=== PATIENT | female | born 1945 | race Caucasian/White ===

== ENCOUNTER 2019-03-26 15:14 | Outpatient (REF) | payer MEDICARE, SELFPAY ==
[2019-03-28 16:52] LABS: Campylobacter PCR SEE COMMENTS; Salmonella PCR SEE COMMENTS; Shiga Toxin PCR SEE COMMENTS; Shigella/Enteroinvasive Ecoli SEE COMMENTS
== END 2019-03-26 15:34 ==
LOC: NCHCN 15:14
PROVIDERS: PCP Physician Assistant Medical; Visit Provider Nurse Practitioner Family
DX: R19.7 Diarrhea, unspecified (principal)
CPT/HCPCS: 87505; 87324

== ENCOUNTER 2019-07-10 10:03 | Outpatient (REF) | payer MEDICARE, SELFPAY ==
[2019-07-11 12:14] LABS: Anion Gap 8.7 mmol/L (3-11); BUN 15 mg/dL (7-18); CO2 29.3 mmol/L (21.0-32.0); CREATININE 0.79 mg/dL (0.55-1.02); Calculated LDL 101 mg/dL; Chloride 103 mmol/L (98-107); Cholesterol 169 mg/dL (<200); Glucose 103 mg/dL (74-106); HDL Cholesterol 54 mg/dL (40-60); Potassium 4.2 mmol/L (3.5-5.1); Sodium 141 mmol/L (136-145); Triglyceride 70 mg/dL (<150)
== END 2019-07-10 10:23 ==
LOC: NCHCN 10:03
PROVIDERS: PCP Physician Assistant Medical; Visit Provider Nurse Practitioner Family
DX: E78.2 Mixed hyperlipidemia (principal); I10 Essential (primary) hypertension
CPT/HCPCS: 80048; 80061

== ENCOUNTER 2020-07-22 22:51 | Outpatient (REF) | payer MEDICARE, SELFPAY ==
[2020-07-22 19:35] LABS: Anion Gap 5.6 mmol/L (3-11); BUN 16 mg/dL (7-18); CO2 30.4 mmol/L (21.0-32.0); CREATININE 0.89 mg/dL (0.55-1.02); Calcium 9.1 mg/dL (8.5-10.1); Calculated LDL 101 mg/dL (<100); Chloride 103 mmol/L (98-107); Cholesterol 198 mg/dL (<200); Glucose 114 mg/dL (74-106); HDL Cholesterol 77 mg/dL (40-60); Potassium 4.2 mmol/L (3.5-5.1); Sodium 139 mmol/L (136-145); Triglyceride 100 mg/dL (<150)
== END 2020-07-22 23:11 ==
LOC: NCHCN 22:51
PROVIDERS: PCP Physician Assistant Medical; Visit Provider Nurse Practitioner Family
DX: E78.2 Mixed hyperlipidemia (principal); I10 Essential (primary) hypertension
CPT/HCPCS: 80048; 80061

== ENCOUNTER 2021-08-12 14:56 | Outpatient (REF) | payer MEDICARE, SELFPAY ==
[2021-08-12 21:57] LABS: Hemoglobin A1C 5.6 % (<5.7)
[2021-08-12 22:08] LABS: Anion Gap 9.1 mmol/L (3-11); BUN 23 mg/dL (7-18); CO2 27.9 mmol/L (21.0-32.0); CREATININE 0.9 mg/dL (0.55-1.02); Calcium 9.2 mg/dL (8.5-10.1); Chloride 101 mmol/L (98-107); Glucose 114 mg/dL (74-106); Magnesium 2.2 mg/dL (1.8-2.4); Potassium 4.3 mmol/L (3.5-5.1); Sodium 138 mmol/L (136-145); TSH 2.12 uIU/mL (0.36-3.74)
== END 2021-08-12 14:57 | disposition home or self-care (01) ==
LOC: NCHCN 14:56
PROVIDERS: PCP Physician Assistant Medical; Visit Provider Internal Medicine
DX: R73.9 Hyperglycemia, unspecified (principal); I10 Essential (primary) hypertension
CPT/HCPCS: 80048; 83036; 83735; 84100; 84443

== ENCOUNTER 2022-01-19 19:33 | Outpatient (REF) | payer MEDICARE, SELFPAY | END 2022-01-19 19:34 | disposition home or self-care (01) | LOC: NCHCN 19:33 | PROVIDERS: PCP Physician Assistant Medical; Visit Provider Nurse Practitioner Family | DX: T14.8XXA Other injury of unspecified body region, initial encounter (principal); W57.XXXA Bitten or stung by nonvenomous insect and other nonvenomous arthropods, initial encounter | CPT/HCPCS: 87070; 87205 ==

== ENCOUNTER 2022-09-02 11:22 | Outpatient (REF) | payer MEDICARE, SELFPAY ==
[2022-09-02 18:52] LABS: Anion Gap 8.3 mmol/L (3-11); BUN 21 mg/dL (7-18); CO2 27.7 mmol/L (21.0-32.0); Calcium 9.7 mg/dL (8.5-10.1); Chloride 102 mmol/L (98-107); Estimated GFR 58.02 (mL/min/1.73m2); Glucose 115 mg/dL (74-106); Magnesium 2.1 mg/dL (1.8-2.4); Sodium 138 mmol/L (136-145)
[2022-09-02 18:55] LABS: Hemoglobin A1C 5.8 % (<5.7)
== END 2022-09-02 11:23 | disposition home or self-care (01) ==
LOC: NCHCN 11:22
PROVIDERS: PCP Physician Assistant Medical; Visit Provider Internal Medicine
DX: R73.9 Hyperglycemia, unspecified (principal); I10 Essential (primary) hypertension; M81.0 Age-related osteoporosis without current pathological fracture; Z00.00 Encounter for general adult medical examination without abnormal findings
CPT/HCPCS: 80048; 83036; 83735

== ENCOUNTER 2023-08-29 18:13 | Outpatient (REF) | payer MEDICARE, SELFPAY ==
[2023-08-29 20:14] LABS: Anion Gap 10.7 mmol/L (3-11); BUN 17 mg/dL (7-18); CO2 24.3 mmol/L (21.0-32.0); CREATININE 0.9 mg/dL (0.55-1.02); Calcium 9.9 mg/dL (8.5-10.1); Chloride 103 mmol/L (98-107); Estimated GFR 65.44 (mL/min/1.73m2); Glucose 106 mg/dL (74-106); Potassium 4.2 mmol/L (3.5-5.1); Sodium 138 mmol/L (136-145)
[2023-08-29 20:40] LABS: Hemoglobin A1C 5.7 % (<5.7)
== END 2023-08-29 18:14 | disposition home or self-care (01) ==
LOC: NCHCN 18:13
PROVIDERS: PCP Physician Assistant Medical; Visit Provider Internal Medicine
DX: I10 Essential (primary) hypertension (principal); R73.9 Hyperglycemia, unspecified
CPT/HCPCS: 80048; 83036

== ENCOUNTER 2024-09-07 13:56 | Outpatient (REF) | payer MEDICARE, SELFPAY ==
[2024-09-07 19:37] LABS: Anion Gap 5.2 mmol/L (3-11); BUN 18 mg/dL (7-18); CO2 28.8 mmol/L (21.0-32.0); Calcium 9.7 mg/dL (8.5-10.1); Calculated LDL 102 mg/dL (<100); Chloride 102 mmol/L (98-107); Cholesterol 201 mg/dL (<200); Estimated GFR 57.31 (mL/min/1.73m2); Glucose 109 mg/dL (74-106); HDL Cholesterol 81 mg/dL (40-60); Potassium 4.6 mmol/L (3.5-5.1); Sodium 136 mmol/L (136-145); Triglyceride 91 mg/dL (<150)
== END 2024-09-07 13:57 | disposition home or self-care (01) ==
LOC: NCHCN 13:56
PROVIDERS: PCP Physician Assistant Medical; Visit Provider Internal Medicine
DX: E78.2 Mixed hyperlipidemia (principal)
CPT/HCPCS: 80048; 80061